=== PATIENT | male | born 1935 | race African-American/Black ===

== ENCOUNTER → 2023-04-08 15:00 | Outpatient (REF) | payer OTHER, SELFPAY | LOC: HWRAD 15:00 | PROVIDERS: ATTENDING PHYSICIAN Physician Assistant; FAMILY PHYSICIAN Family Medicine | DX: Z13.820 Encounter for screening for osteoporosis (principal); C61 Malignant neoplasm of prostate | CPT/HCPCS: 77080 ==

== ENCOUNTER → 2023-09-01 12:43 | Outpatient (REF) | payer OTHER, SELFPAY | LOC: HWRAD 12:43 | PROVIDERS: ATTENDING PHYSICIAN Family Medicine | DX: S60.011A Contusion of right thumb without damage to nail, initial encounter (principal) | CPT/HCPCS: 73140 ==